=== PATIENT | male | born 1995 | race Caucasian/White ===

== ENCOUNTER 2022-06-29 12:29 | Emergency (ER) | payer OTHER ==
[2022-06-29] MEDS ORDERED: CIPRO500 MG PO (13:33)
== END 2022-06-29 13:51 | disposition home or self-care (01) ==
LOC: FER 12:29
DX: S91.332A Puncture wound without foreign body, left foot, initial encounter (principal); J45.909 Unspecified asthma, uncomplicated; Z23 Encounter for immunization; W45.0XXA Nail entering through skin, initial encounter; Z28.310 Unvaccinated for COVID-19
CPT/HCPCS: 73630; 90471; 90715